=== PATIENT | male | born 1955 | race Caucasian/White ===

== ENCOUNTER 2020-03-11 09:31 | Outpatient (CLI) | payer OTHER, SELFPAY ==
--- NOTE | 2020-03-11 | EST_ITS ---
Patient Info Name: Jose Tang Age: 64 years : 1955 Gender: Male Ht: 74 in Wt: 173 lbs BSA: 2.02 m2 Heart Rhythm: Sinus Rhythm, Bradycardia Exam Date: 03/11/2020 10:02 AM Exam Location: [facility] Stress Patient Status: Outpatient Admit Date: 03/11/2020 Staff Ordering Physician: Jaskaran Machuca MD Attending Provider: Jaskaran Machuca MD Exercise Technologist: Camelia Christie RDCS Exam Type: CA stress test treadmill Study Info Indications R07.89 - Other chest pain A treadmill exercise stress test was performed. Summary 1. 1-[address] segment depression in leads II, III, aVF consistent with myocardial ischemia. Baseline artifact. 2. Occasional PVCs. 3. Maximal treadmill stress EKG study achieving 94% of age predicted maximum heart rate an 12.1 METS at peak exercise. 4. Excellent exercise capacity for age exercising 12 minutes on Davidson protocol. No exercise-induced chest pain. Normal heart rate and blood pressure response exercise. Protocol: Davidson Stress ECG Details Stage: REST Duration (min): 6 min : 40 sec Speed (mph): 0.0 Grade (%): 0 HR (bpm): 41 SBP (mmHg): 116 DBP (mmHg): 61 METS: --- Stage: REST Duration (min): 11 min : 21 sec Speed (mph): 0.0 Grade (%): 0 HR (bpm): 44 SBP (mmHg): 116 DBP (mmHg): 61 METS: --- Stage: STAGE 1 Duration (min): 1 min : 0 sec Speed (mph): 1.7 Grade (%): 10 HR (bpm): 69 SBP (mmHg): 116 DBP (mmHg): 61 METS: --- Stage: STAGE 1 Duration (min): 2 min : 0 sec Speed (mph): 1.7 Grade (%): 10 HR (bpm): 72 SBP (mmHg): 116 DBP (mmHg): 61 METS: --- Stage: STAGE 1 Duration (min): 3 min : 0 sec Speed (mph): 1.7 Grade (%): 10 HR (bpm): 77 SBP (mmHg): 130 DBP (mmHg): 70 METS: --- Stage: STAGE 2 Duration (min): 1 min : 0 sec Speed (mph): 2.5 Grade (%): 12 HR (bpm): 83 SBP (mmHg): 130 DBP (mmHg): 70 METS: --- Stage: STAGE 2 Duration (min): 2 min : 0 sec Speed (mph): 2.5 Grade (%): 12 HR (bpm): 85 SBP (mmHg): 140 DBP (mmHg): 62 METS: --- Stage: STAGE 2 Duration (min): 3 min : 0 sec Speed (mph): 2.5 Grade (%): 12 HR (bpm): 87 SBP (mmHg): 140 DBP (mmHg): 62 METS: --- Stage: STAGE 3 Duration (min): 1 min : 0 sec Speed (mph): 3.4 Grade (%): 14 HR (bpm): 100 SBP (mmHg): 157 DBP (mmHg): 58 METS: --- Stage: STAGE 3 Duration (min): 2 min : 0 sec Speed (mph): 3.4 Grade (%): 14 HR (bpm): 108 SBP (mmHg): 157 DBP (mmHg): 58 METS: --- Stage: STAGE 3 Duration (min): 3 min : 0 sec Speed (mph): 3.4 Grade (%): 14 HR (bpm): 107 SBP (mmHg): 161 DBP (mmHg): 75 METS: --- Stage: STAGE 4 Duration (min): 1 min : 0 sec Speed (mph): 4.2 Grade (%): 16 HR (bpm): 134 SBP (mmHg): 161 DBP (mmHg): 75 METS: ---
== END 2020-03-11 09:32 | disposition home or self-care (01) ==
PROVIDERS: PCP Family Medicine Adolescent Medicine; Visit Provider Family Medicine Adolescent Medicine
DX: I70.0 Atherosclerosis of aorta (principal)
CPT/HCPCS: 93017

== ENCOUNTER → 2020-04-19 10:23 | Outpatient (CLI) | payer OTHER, SELFPAY ==
--- NOTE | ~2020-04-19 | US_ITS ---
EXAMINATION: US scrotum doppler EXAM DATE: 04/19/2020 11:15 INDICATION: Left testicular pain. TECHNIQUE: Multiple grayscale and Doppler images of the testicles and scrotum were obtained bilateral ly. There is no prior study for comparison. FINDINGS: Right testicle measures 3.9 x 2.1 x 4.1 cm and is morphologically normal. Low resistance Doppler nay w confirmed. The epididymis is unremarkable. There is small varicocele and small to moderate hydrocel e. Left testicle measures 2.9 x 2.0 x 3.1 cm and is morphologically normal. Low resistance Doppler flow confirmed. The epididymis is unremarkable. There is moderate-sized varicocele and small hydrocele. IMPRESSION: 1. Bilateral hydroceles and varicoceles. 2. Normal testicular parenchyma. Reviewed, dictated and finalized at location A.
--- NOTE | ~2020-04-19 | US_ITS ---
EXAMINATION: US retroperitoneal comp EXAM DATE: 04/19/2020 11:15 INDICATION: Flank pain. TECHNIQUE: Multiple grayscale and Doppler images of the kidneys were obtained (by a technologist who performed the scan) and subsequently reviewed. There is no prior study for comparison. FINDINGS: Right kidney: There is normal contour and echogenicity. It measures 10.5 x 4.5 x 5.3 centimeters. T here are no focal renal lesions identified. There is no hydronephrosis. Left kidney: There is normal contour and echogenicity. It measures 11.8 x 6.5 x 5.0 centimeters. Th ere are no focal renal lesions identified. There is no hydronephrosis. Bladder unremarkable. IMPRESSION: 1. Sonographically unremarkable kidneys. Reviewed, dictated and finalized at location A.
== END ==
PROVIDERS: PCP Family Medicine Adolescent Medicine; Visit Provider Nurse Practitioner Adult Health
DX: N50.819 Testicular pain, unspecified (principal); N43.3 Hydrocele, unspecified
CPT/HCPCS: 76770; 76870; 93976

== ENCOUNTER 2020-09-22 12:56 | Outpatient (CLI) | payer OTHER, SELFPAY | END 2020-09-22 12:57 | disposition home or self-care (01) | LOC: ANHAUDIO 12:57 | PROVIDERS: PCP Family Medicine Adolescent Medicine; Visit Provider Otolaryngology | DX: H93.19 Tinnitus, unspecified ear (principal); H90.3 Sensorineural hearing loss, bilateral | CPT/HCPCS: 92557; 92567 ==

== ENCOUNTER 2022-08-04 18:48 | Emergency (ER) | payer OTHER, SELFPAY ==
[2022-08-04] VITALS (7 sets, daily range): BP systolic 108–141; BP diastolic 57–86; PULSE 46–131; RESP 13–22; TEMP 36.5; O2SAT 99–100
--- NOTE | ~2022-08-04 | XR_ITS ---
XR chest 2V DATE: 08/04/2022 19:44 INDICATION: Lightheadedness, tachycardia TECHNIQUE: PA and lateral views COMPARISON: 10/12/2017 two-view chest FINDINGS: Normal heart size. Aortic arch calcification. No hilar or mediastinal enlargement. Moderate bilateral hyperinflation. No pulmonary infiltrate or consolidation, pleural effusion or pulm onary vascular congestion or pneumothorax is detected. Mild dextro scoliosis and degenerative spurring of the thoracic spine. IMPRESSION: Moderate hyperinflation Aortic atherosclerosis No active pulmonary disease Reviewed, dictated and finalized at location A. HER SEASONER
--- NOTE | 2022-08-04 18:50 | ECG_ITS ---
Measurements Intervals [place] Rate: 114 P: ME: 0 QRS: 65 QRSD: 90 T: 60 QT: 305 QTc: 421 Interpretive Statements ATRIAL FIBRILLATION WITH RAPID VENTRICULAR RESPONSE INCOMPLETE RIGHT BUNDLE BRANCH BLOCK BORDERLINE ST ABNORMALITY- ANTEROLAT/INF LEADS ABNORMAL ECG NO PREVIOUS ECG AVAILABLE FOR COMPARISON Electronically Signed On 08-04-2022 20:52:12 [employer] by Noe Keene D.O.
--- NOTE | 2022-08-04 19:17 | ED.ARRPALP ---
HPI - Arrhythmia/Palpitations General Chief Complaint: Arrhythmia/Palpitations Stated Complaint: palpitations Time Seen by Provider: 08/04/22 19:05 Source: patient and RN notes reviewed Mode of arrival: ambulatory Limitations: no limitations History of Present Illness HPI narrative: This is a 67 year old male who presents for evaluation of irregular heart beat. Patient states around 6 pm tonight he started to feel weak and unwell. He checked his pulse and it was erratic. This continued so he came to ER for evaluation . His triage EKG shows atrial fibrillation which is new for patient. He also reports chest heaviness at onset of his symptoms. He denies associated diaphoresis, sob, nausea, vomiting, fever, chills. His reports that he has had cough for 2 days. Related Data Home Medications Medication Instructions Recorded Confirmed alpha lipoic acid 600 mg capsule 600 mg PO BID 09/20/20 01/11/22 Lactobacillus acidophilus 10 10,000 mmu cells PO DAILY 01/11/22 01/11/22 billion cell capsule (Probiotic) ascorbic acid (vitamin C) 1,000 mg 1,000 mg PO DAILY 01/11/22 01/11/22 tablet,extended release cholecalciferol (vitamin D3) 50 50 mcg PO DAILY 01/11/22 01/11/22 mcg (2,000 unit) capsule naltrexone PO .qd 01/11/22 01/11/22 Allergies Allergy/AdvReac Type Severity Reaction Status Date / Time diazepam Allergy Unknown Unknown Verified 08/04/22 19:03 milk Allergy Unknown LACTOSE Verified 08/04/22 19:03 INTOLERANCE ciprofloxacin [From Cipro] Allergy interfers Verified 08/04/22 19:03 with my peripheral neuropathy Review of Systems Constitutional: Constitutional: Reports fatigue and Reports weakness ENT: Denies nasal congestion Cardiovascular: Cardiovascular: Reports chest pain, Denies syncope, Denies rapid heart rate, Reports irregular heart rhythm, Denies leg edema and Denies dyspnea Respiratory: Respiratory: Denies chest congestion, Reports cough, Denies hemoptysis, Denies excessive phlegm production and Denies dyspnea Gastrointestinal: Gastrointestinal: Denies abdominal pain, Denies hematochezia, Denies diarrhea and Denies vomiting Genitourinary: Genitourinary: Denies hematuria, Denies dysuria, Denies penile discharge and Denies testicular pain Musculoskeletal: Musculoskeletal: Denies joint swelling, Denies loss of height and Denies muscle weakness Neurologic: Denies syncope, Denies focal weakness and Denies weakness PMFSH Past Medical History Medical History Irritable bowel syndrome Surgical History Surgical History History of lumbar surgery 1977 Family History Family History Father Carcinoma of colon Thyroid disorder Mother Cerebrovascular accident Grandparent Cerebrovascular accident Other Acute myocardial infarction Heart disease Sibling Asthma Other Cerebrovascular accident Other Family history of arthritis Social History Social History (Updated 08/04/22 @ 19:23 by Herminia Whipple MD) Smoking status: Former smoker Second hand tobacco smoke exposure: No Alcohol intake: never Substance use: never Substance use type: does not use Gender identity (if verbalized by the patient): Male Sexual Orientation (if Verbalized by the Patient): Straight or Heterosexual Spiritual care concerns: No Agree to blood products: Yes Exam Const: General: no acute distress and alert Nutritional Appearance: well nourished Orientation/consciousness: patient oriented x3 Limitations: no limitations HENMT: Head: normal to inspection Face and sinus: normal facial exam Throat: posterior oropharynx normal Eyes: Pupils: Equal, round and reactive pupils present EOM: EOMs intact bilaterally Neck: Neck: normal visual inspection Chest: Chest palpation & inspection: normal inspection of the c
[2022-08-04 19:24] LABS: Basophils Percent Auto 0.5 % (0.2-1.2); Eosinophils Absolute Auto 0.3 K/mm3 (0-0.3); Eosinophils Percent Auto 5.1 % (0-4.4); Hematocrit 45.5 % (42.0-52.0); Hemoglobin 14.9 g/dL (14.0-18.0); Immature Granulocyte Absolute 0.01 K/mm3 (0.00-0.031); Immature Granulocyte Percent A 0.2 % (0-0.5); Lymphocytes Absolute Auto 1.42 K/mm3 (0.9-3.2); Lymphocytes Percent Auto 25.1 % (18.3-44.2); Mean Corpuscular HGB Conc 32.7 g/dl (32-36); Mean Corpuscular Hemoglobin 30.7 pg (26-34); Mean Corpuscular Volume 93.6 fl (80-100); Monocytes Absolute Auto 0.4 K/mm3 (0.1-0.6); Monocytes Percent Auto 6.9 % (2.6-8.5); Neutrophils Absolute Auto 3.5 K/mm3 (1.3-6.7); Neutrophils Percent Auto 62.2 % (45.5-73.1); Platelet Count Result 210 k/mm3 (150-375); Red Blood Count 4.86 M/mm3 (4.6-6.20); Red Cell Distribution Width 12.1 % (11.5-14.5); White Blood Count 5.7 K/mm3 (4.5-10.0)
[2022-08-04] MEDS: ASPIRIN 81 MG CHEWABLE TABLET 324 MG PO (19:24)
[2022-08-04 19:34] LABS: Partial Thromboplastin Time 24.8 SECONDS (22.3-36.8); Prothrombin Time 12.7 Seconds (11.1-14.7)
[2022-08-04 19:42] LABS: Magnesium 2.3 mg/dL (1.6-2.3)
[2022-08-04 19:43] LABS: Alanine Aminotransferase 26 U/L (6-50); Albumin Level 4.2 g/dL (3.5-5.1); Alkaline Phosphatase 64 U/L (38-126); Anion Gap 5 mmol/L (8-16); Aspartate Amino Transferase 25 U/L (17-59); Bilirubin,Total 0.2 mg/dL (0.2-1.3); Blood Urea Nitrogen 17 mg/dL (9-20); Carbon Dioxide 32 mmol/L (22-30); Chloride 100 mmol/L (98-107); Estimated Glomerular Filt Rate > 60; Glucose 112 mg/dL (65-110); Lipase 201 U/L (23-300); Potassium 3.9 mmol/L (3.4-5.0); Sodium 137 mmol/L (137-145)
[2022-08-04 19:54] LABS: Troponin I < 0.012 ng/mL (0.000-0.034)
[2022-08-04 20:36] LABS: SARS-CoV-2 RNA PCR Negative
[2022-08-04] MEDS: SODIUM CHLORIDE 0.9% IV 500 ML 999 ML IV CONT (20:41)
[2022-08-04] MEDS: RIVAROXABAN 20 MG TABLET PO (20:41)
[2022-08-04 22:09] LABS: Free T4 Free Thyroxine Reflex 0.78 ng/dL (0.78-2.19)
[2022-08-04 22:38] LABS: Troponin I 0.012 ng/mL (0.000-0.034)
[2022-08-04 23:11] LABS: Total Triiodothyronine (T3) 1.22 NG/ML (0.97-1.69)
== END 2022-08-04 23:14 | disposition home or self-care (01) ==
PROVIDERS: Preventive Medicine Aerospace Medicine; Emergency Provider General Practice; PCP Family Medicine Adolescent Medicine
DX: I48.0 Paroxysmal atrial fibrillation (principal); Z20.822 Contact with and (suspected) exposure to COVID-19; K58.9 Irritable bowel syndrome, unspecified; Z87.891 Personal history of nicotine dependence; I70.0 Atherosclerosis of aorta; I45.10 Unspecified right bundle-branch block; R94.31 Abnormal electrocardiogram [ECG] [EKG]
CPT/HCPCS: 36415; 71046; 80053; 83690; 83735; 84439; 84443; 84480; 84484; 85025; 85610; 85730; 93005; 96360; 99284; A9270; J7040; U0003; U0005

== ENCOUNTER 2022-09-28 00:36 | Day surgery (SDC) | payer OTHER, SELFPAY ==
[2022-09-14 13:34] VITALS: BMI 22.4
[2022-09-28 06:57] VITALS: BP 122/64; PULSE 43; RESP 18; TEMP 36.5; O2SAT 100
[2022-09-28] MEDS: LACTATED RINGERS 1,000 ML 150 ML IV CONT (07:06)
--- NOTE | 2022-09-28 07:25 | PM.HPGS ---
History of Present Illness History of Present Illness Consent: Risks, benefits, and alternatives have been discussed and questions answered. Patient agrees to proceed with procedure. Chief complaint: family hx colorectal ca, diarrhea Narrative: Jose Tang is a 67 year old male Presents for colonoscopy. Patient has intermittent abdominal pain diarrhea and cramping. Denies a fever. He has had no bleeding. He does have a distant history of colon biopsies suggesting possible microscopic colitis. More recently has been treated with for irritable bowel syndrome. He has been given a trial of dicyclomine because of abdominal cramping which does not appear to completely alleviate his symptoms. Follow-up colonoscopy anticipated today because of ongoing abdominal pain cramps and diarrhea occurring intermittently. Patient's family history is significant for colon cancer in his father. Review of Systems Review of Systems: Review of systems noncontributory. [facility] Past Medical History Medical History Irritable bowel syndrome Surgical History Surgical History History of lumbar surgery 1978 Family History Family History Father Carcinoma of colon Thyroid disorder Mother Cerebrovascular accident Grandparent Cerebrovascular accident Other Acute myocardial infarction Heart disease Sibling Asthma Other Cerebrovascular accident Other Family history of arthritis Social History Social History (Updated 08/04/22 @ 19:23 by Herminia Whipple MD) Smoking status: Former smoker Second hand tobacco smoke exposure: No Alcohol intake: never Substance use: never Substance use type: does not use Living arrangements: with family Occupation/Education: retired Gender identity (if verbalized by the patient): Male Sexual Orientation (if Verbalized by the Patient): Straight or Heterosexual Spiritual care concerns: No Agree to blood products: Yes Meds Home Medications and Allergies Home Medications Medication Instructions Recorded Confirmed Type ascorbic acid (vitamin C) 1,000 mg 1,000 mg PO DAILY 01/11/22 09/14/22 History tablet,extended release cholecalciferol (vitamin D3) 50 100 mcg PO DAILY 01/11/22 09/14/22 History mcg (2,000 unit) capsule naltrexone 1.5 mg PO DAILY 01/11/22 09/14/22 History celecoxib 200 mg capsule (Celebrex) 200 mg PO DAILY #90 caps 07/11/22 09/14/22 Rx dicyclomine 20 mg tablet 20 mg PO BID PRN abdominal pain 08/02/22 09/14/22 Rx #90 tabs methylprednisolone 4 mg tablet 4 mg PO .COMPLEX #26 tabs 08/03/22 09/14/22 Rx Alpha R Lipoic Acid 300 mg PO BID 09/14/22 09/14/22 History Palmitoilethanilamide 400 mg PO BID 09/14/22 09/14/22 History apixaban 5 mg tablet (Eliquis) 5 mg PO BID 09/14/22 09/14/22 History gabapentin 400 mg capsule 400 mg PO TID #270 caps 09/24/22 09/25/22 Rx metoprolol succinate 25 mg 25 mg PO DAILY 09/25/22 09/25/22 History tablet,extended release 24 hr Allergies Allergy/AdvReac Type Severity Reaction Status Date / Time milk Allergy Unknown LACTOSE Verified 09/28/22 06:56 INTOLERANCE ciprofloxacin [From Cipro] AdvReac Intermediate interfers Verified 09/28/22 06:56 with my peripheral neuropathy diazepam AdvReac Intermediate Other Verified 09/28/22 06:56 Vital Signs Vital Signs - 24 hr 09/28/22 06:57 Temperature 97.7 F Pulse Rate 43 L Respiratory Rate 18 Blood Pressure 122/64 Pulse Oximetry 100 Oxygen Delivery Room Air Exam Narrative: Physical exam reveals patient to be somewhat anxious. Vital signs stable. HEENT exam reveals no icterus. Lungs are clear to auscultation and percussion. Heart is without murmur or extra sounds. Abdomen bowel sounds are present soft nontender with no organomegaly. Digital external rectal exam is norm
--- NOTE | 2022-09-28 07:43 | WPDANESEPPF ---
Anes - Initial Pre Proc Eval Procedure: Operation Date: 09/28/22 08:00 Proposed Procedures p Colonoscopy - Justin Freed MD Date/Time: 09/28/22 07:43 Surgeon: Justin Freed MD Pre Op Diagnosis: family hx colorectal ca, diarrhea Patient Data Age: 67 Gender: M Height: 1.88 m Weight: 78 kg Last Vital Signs Temp 97.7 F 09/28/22 06:57 Pulse 43 L 09/28/22 06:57 Resp 18 09/28/22 06:57 BP 122/64 09/28/22 06:57 Pulse Ox 100 09/28/22 06:57 O2 Del Method Room Air 09/28/22 06:57 Allergies Allergy/AdvReac Type Severity Reaction Status Date / Time milk Allergy Unknown LACTOSE Verified 09/28/22 06:56 INTOLERANCE ciprofloxacin [From Cipro] AdvReac Intermediate interfers Verified 09/28/22 06:56 with my peripheral neuropathy diazepam AdvReac Intermediate Other Verified 09/28/22 06:56 Home Medications Medication Instructions Recorded Confirmed Type ascorbic acid (vitamin C) 1,000 mg 1,000 mg PO DAILY 01/11/22 09/14/22 History tablet,extended release cholecalciferol (vitamin D3) 50 100 mcg PO DAILY 01/11/22 09/14/22 History mcg (2,000 unit) capsule naltrexone 1.5 mg PO DAILY 01/11/22 09/14/22 History celecoxib 200 mg capsule (Celebrex) 200 mg PO DAILY #90 caps 07/11/22 09/14/22 Rx dicyclomine 20 mg tablet 20 mg PO BID PRN abdominal pain 08/02/22 09/14/22 Rx #90 tabs methylprednisolone 4 mg tablet 4 mg PO .COMPLEX #26 tabs 08/03/22 09/14/22 Rx Alpha R Lipoic Acid 300 mg PO BID 09/14/22 09/14/22 History Palmitoilethanilamide 400 mg PO BID 09/14/22 09/14/22 History apixaban 5 mg tablet (Eliquis) 5 mg PO BID 09/14/22 09/14/22 History gabapentin 400 mg capsule 400 mg PO TID #270 caps 09/24/22 09/25/22 Rx metoprolol succinate 25 mg 25 mg PO DAILY 09/25/22 09/25/22 History tablet,extended release 24 hr Patient hx anesthesia problems: none Family hx anesthesia problems: none Results Review: All pre-operative results and documents have been reviewed as part of the pre-operative evaluation. [facility] Past Medical History Medical History Irritable bowel syndrome Surgical History Surgical History History of lumbar surgery 1977 Family History Family History Father Carcinoma of colon Thyroid disorder Mother Cerebrovascular accident Grandparent Cerebrovascular accident Other Acute myocardial infarction Heart disease Sibling Asthma Other Cerebrovascular accident Other Family history of arthritis Social History Social History (Updated 08/04/22 @ 19:23 by Herminia Whipple MD) Smoking status: Former smoker Second hand tobacco smoke exposure: No Alcohol intake: never Substance use: never Substance use type: does not use Living arrangements: with family Occupation/Education: retired Gender identity (if verbalized by the patient): Male Sexual Orientation (if Verbalized by the Patient): Straight or Heterosexual Spiritual care concerns: No Agree to blood products: Yes Anes - Eval Final PreProcedure Day of Procedure 09/28/22 07:43 Patient weight: normal Heart: regular rate and rhythm Lungs: clear to auscultation Airway: Mallampati scale class II Neurological: alert and oriented Last oral intake: >/= 8 hours ASA classification: III Emergent: no Anesthetic plan: proceed Anesthesia type and monitoring: general GIVS and standard monitoring Results Review: All pre-operative results and documents have been reviewed as part of the pre-operative evaluation. Informed Consent: The patient's anesthetic plan and its attendant risks and benefits were discussed with the patient/family/POA. Questions were solicited and answers provided to the satisfaction of the patient/family/POA.
[2022-09-28 08:27] VITALS: BP 111/57; PULSE 50; RESP 18; O2SAT 100
[2022-09-28 08:37] VITALS: BP 132/67; PULSE 52; RESP 18; O2SAT 100
[2022-09-28 08:47] VITALS: BP 137/79; PULSE 52; RESP 20; O2SAT 100
--- NOTE | 2022-09-28 08:52 | SUR.PHASEII ---
PT PINCHED FINGER IN BETWEEN STRETCHER AND RAILING UPON GETTING UP, PT HAS SMALL CUT ON LEFT KNUCKLE, PT DENIES ANY TREATMENT OR CONCERN.
== END 2022-09-28 08:53 | disposition home or self-care (01) ==
PROVIDERS: PCP Family Medicine Adolescent Medicine; Visit Provider Internal Medicine Gastroenterology
PROC: 0DJD8ZZ Inspection of Lower Intestinal Tract, Via Natural or Artificial Opening Endoscopic (ICD-10-PCS; CPT 45378; principal; 2022-09-28 08:00)
DX: K58.0 Irritable bowel syndrome with diarrhea (principal); K64.8 Other hemorrhoids; Z80.0 Family history of malignant neoplasm of digestive organs; K58.9 Irritable bowel syndrome, unspecified; Z87.891 Personal history of nicotine dependence
CPT/HCPCS: 45380; 88305; J0461; J2704; J7120